=== PATIENT | female | born 1980 | race Caucasian/White ===

== ENCOUNTER 2016-08-30 17:29 | Emergency (ER) | payer OTHER ==
[2016-08-30 18:17] LABS: BASOPHIL 1.2 % (0-2); EOSINOPHIL 0.5 % (0-5); HCT 44.2 % (37.0-47.0); HGB 15.4 g/dl (12.5-16.0); MCH 35.1 pg (25.0-31.0); MCHC 34.8 g/dL (32.0-36.0); MCV 100.7 fL (78.0-100.0); MONOCYTE 6.5 % (0-12); MPV 9.3 fL (6.0-9.5); NEUTROPHIL 71.8 % (41-80); PLT 243 K/uL (150-400); RBC 4.39 M/uL (4.20-5.40); RDW 12.9 % (11.5-14.0); WBC 8.3 K/uL (4.0-10.5)
[2016-08-30 18:33] LABS: BILIRUBIN NEGATIVE (NEGATIVE); BLOOD TRACE-LYSED Ery/uL (NEGATIVE); CLARITY CLEAR (CLEAR); COLOR STRAW (YELLOW); GLUCOSE (U) 3+ mg/dL (NORMAL); KETONE (U) 2+ (MODERATE) mg/dL (NEGATIVE); LEUKOCYTES NEGATIVE Leu/uL (NEGATIVE); NITRITE NEGATIVE (NEGATIVE); PROTEIN NEGATIVE (NEGATIVE); UROBILINOGEN 0.2 mg/dL (0.2-1.0); pH 5.5 (5.0-9.0)
[2016-08-30 18:41] LABS: AMPHETAMINES NEGATIVE (NEGATIVE); BARBITURATES NEGATIVE (NEGATIVE); BENZODIAZEPINES NEGATIVE (NEGATIVE); COCAINE NEGATIVE (NEGATIVE); MARIJUANA (THC) NEGATIVE (NEGATIVE); METHADONE NEGATIVE (NEGATIVE); TRICYCLIC ANTIDEPRESSANT NEGATIVE (NEGATIVE)
[2016-08-30 18:46] LABS: ALBUMIN 4.2 g/dL (3.5-5.0); BILIRUBIN - TOTAL 0.2 mg/dL (0.1-1.0); CREATININE 0.5 mg/dL (0.5-1.0); GLOBULIN (CALCULATION) 2.6 g/dL (2.2-4.2); POTASSIUM 4.2 mmol/L (3.5-5.1); TOTAL PROTEIN 6.8 g/dL (6.4-8.3)
[2016-08-30 18:52] LABS: URINARY RBC RARE; URINARY WBC RARE
[2016-08-30 18:53] LABS: BACTERIA TRACE; SQUAMOUS EPITHELIAL CELLS RARE
[2016-08-30 19:01] LABS: INR 0.95 (0.9-1.2); PROTHROMBIN TIME 12.3 SECONDS (11.7-14.0); PTT 35.1 SECONDS (23.2-31.4)
== END 2016-08-30 19:31 | disposition other institution (70) ==
LOC: FER 17:29
PROVIDERS: Emergency Medicine
DX: I63.9 Cerebral infarction, unspecified (principal); R29.810 Facial weakness; R47.9 Unspecified speech disturbances; E10.40 Type 1 diabetes mellitus with diabetic neuropathy, unspecified; F41.9 Anxiety disorder, unspecified; F17.210 Nicotine dependence, cigarettes, uncomplicated; Z72.89 Other problems related to lifestyle; Z88.0 Allergy status to penicillin; Z88.1 Allergy status to other antibiotic agents; Z96.41 Presence of insulin pump (external) (internal); Z79.899 Other long term (current) drug therapy
CPT/HCPCS: 36415; 70450; 71010; 80053; 80305; 81001; 82550; 85025; 85610; 85730; 93005; G0480

== ENCOUNTER 2020-12-31 12:58 | Emergency (ER) | payer OTHER ==
[~2020-12-31 12:58] MED LIST: ASPIRIN EC81 MG PO; HUMALOG SC; KLONOPIN0.5 MG PO; LANTUS **100 UNITS/ SC; LIPITOR40 MG PO; NEURONTIN300 MG PO; PHENERGAN25 M1 PO; PROZAC20 MG PO; TOPROL XL 50 MG50 MG PO; TRAMADOL HCL50 MG PO; TRAZODONE 50MG50 MG PO; ZESTRIL2.5 MG PO; ZOFRAN ODT4 MG SL
[2020-12-31 14:05] LABS: EOSINOPHIL 2.4 % (0-5); HCT 34.1 % (37.0-47.0); HGB 11.8 g/dl (12.5-16.0); LYMPHOCYTE 21.1 % (15-48); MCH 33.7 pg (25.0-31.0); MCHC 34.6 g/dL (32.0-36.0); MCV 97.4 fL (78.0-100.0); MONOCYTE 6.1 % (0-12); NEUTROPHIL 69.1 % (41-80); NRBC 0; PLT 251 K/uL (150-400); RDW 12.7 % (11.5-14.0); WBC 9.8 K/uL (4.0-10.5)
[2020-12-31 14:13] LABS: ALBUMIN 2.6 g/dL (3.4-5.0); BILIRUBIN - TOTAL 0.4 mg/dL (0.2-1.0); BUN/CREAT RATIO (CALC) 19.1 RATIO; CREATININE 0.89 mg/dL (0.51-0.95); POTASSIUM 4.1 mmol/L (3.5-5.1); TOTAL PROTEIN 5.6 g/dL (6.4-8.2)
[2020-12-31 14:33] LABS: BILIRUBIN NEGATIVE (NEGATIVE); BLOOD 2+ Ery/uL (NEGATIVE); CLARITY CLEAR (CLEAR); COLOR YELLOW (YELLOW); GLUCOSE (U) 3+ mg/dL (NORMAL); LEUKOCYTES NEGATIVE Leu/uL (NEGATIVE); NITRITE NEGATIVE (NEGATIVE); PROTEIN 3+ mg/dL (NEGATIVE); UROBILINOGEN 0.2 mg/dL (0.2-1.0)
[2020-12-31 14:37] LABS: AMPHETAMINES NEGATIVE (NEGATIVE); BARBITURATES NEGATIVE (NEGATIVE); ECSTASY (MDMA) NEGATIVE (NEGATIVE); MARIJUANA (THC) NEGATIVE (NEGATIVE); METHADONE NEGATIVE (NEGATIVE); OPIATES NEGATIVE (NEGATIVE)
[2020-12-31 14:38] LABS: OXYCODONE NEGATIVE (NEGATIVE)
[2020-12-31 14:48] LABS: BACTERIA TRACE
== END 2020-12-31 18:25 | disposition other institution (70) ==
LOC: FER 12:58
PROVIDERS: Nurse Practitioner Family
DX: I63.81 Other cerebral infarction due to occlusion or stenosis of small artery (principal); I10 Essential (primary) hypertension; E10.9 Type 1 diabetes mellitus without complications; Z88.0 Allergy status to penicillin; Z88.1 Allergy status to other antibiotic agents
CPT/HCPCS: 36415; 70450; 70551; 80053; 80305; 81001; 85025; J1100; J1200; J1885; J7030; Q9967

== ENCOUNTER 2021-04-17 10:56 | Emergency (ER) | payer OTHER ==
[2021-04-17 12:22] LABS: BASOPHIL 0.8 % (0-2); EOSINOPHIL 1.9 % (0-5); HCT 28.6 % (37.0-47.0); HGB 9.4 g/dl (12.5-16.0); LYMPHOCYTE 16.1 % (15-48); MCHC 32.9 g/dL (32.0-36.0); MCV 97.3 fL (78.0-100.0); MONOCYTE 5.8 % (0-12); MPV 9.7 fL (6.0-9.5); NEUTROPHIL 74.9 % (41-80); NRBC 0; PLT 291 K/uL (150-400); RBC 2.94 M/uL (4.20-5.40); RDW 12.4 % (11.5-14.0); WBC 8.6 K/uL (4.0-10.5)
[2021-04-17 12:40] LABS: INR 0.9 (0.9-1.2); PROTHROMBIN TIME 11.6 SECONDS (11.8-13.4)
[2021-04-17 12:50] LABS: BILIRUBIN - TOTAL 0.2 mg/dL (0.2-1.0); CREATININE 1.36 mg/dL (0.51-0.95); GLOBULIN (CALCULATION) 3.4 g/dL; POTASSIUM 4.2 mmol/L (3.5-5.1); TOTAL PROTEIN 5.4 g/dL (6.4-8.2)
[2021-04-17] MEDS ORDERED: FIORICET1 EACH PO (15:20)
== END 2021-04-17 15:39 | disposition home or self-care (01) ==
LOC: FER 10:56
PROVIDERS: Internal Medicine
DX: I63.9 Cerebral infarction, unspecified (principal); I50.9 Heart failure, unspecified; Z86.73 Personal history of transient ischemic attack (TIA), and cerebral infarction without residual deficits; Z88.0 Allergy status to penicillin; Z88.1 Allergy status to other antibiotic agents; Z20.822 Contact with and (suspected) exposure to COVID-19
CPT/HCPCS: 36415; 70450; 70551; 71045; 80053; 83874; 84484; 85025; 85610; J1100; J1885; J2405; J7030; U0002

== ENCOUNTER 2021-05-21 13:18 | Emergency (ER) | payer OTHER ==
[~2021-05-21 13:18] MED LIST changes: +FIORICET1 EACH PO
[2021-05-21 14:29] LABS: BASOPHIL 0.8 % (0-2); EOSINOPHIL 0.2 % (0-5); HCT 30.3 % (37.0-47.0); HGB 9.9 g/dl (12.5-16.0); LYMPHOCYTE 12.5 % (15-48); MCH 31.5 pg (25.0-31.0); MCHC 32.7 g/dL (32.0-36.0); MCV 96.5 fL (78.0-100.0); MONOCYTE 3.6 % (0-12); MPV 9.7 fL (6.0-9.5); NEUTROPHIL 82.5 % (41-80); NRBC 0; PLT 389 K/uL (150-400); RBC 3.14 M/uL (4.20-5.40); RDW 13.6 % (11.5-14.0); WBC 10.1 K/uL (4.0-10.5)
[2021-05-21 14:49] LABS: INR 0.84 (0.9-1.2); PTT 25.4 SECONDS (24.4-34.7)
[2021-05-21 15:00] LABS: ALBUMIN 2.1 g/dL (3.4-5.0); ALKALINE PHOSHATASE 107 U/L (46-116); ALT 26 U/L (14-59); AST 24 U/L (15-37); BILIRUBIN - TOTAL 0.2 mg/dL (0.2-1.0); BUN 24 mg/dL (7-18); BUN/CREAT RATIO (CALC) 24.5 RATIO; CHLORIDE 102 mmol/L (98-107); CO2 (BICARBONATE) 25 mmol/L (21-32); CREATININE 0.98 mg/dL (0.51-0.95); GLOBULIN (CALCULATION) 3.5 g/dL; GLUCOSE 276 mg/dL (74-106); LIPASE 107 U/L (73-393); POTASSIUM 4.9 mmol/L (3.5-5.1); TOTAL PROTEIN 5.6 g/dL (6.4-8.2)
== END 2021-05-21 16:36 | disposition home or self-care (01) ==
LOC: FER 13:18
PROVIDERS: Emergency Medicine
DX: E63.9 Nutritional deficiency, unspecified (principal); I25.10 Atherosclerotic heart disease of native coronary artery without angina pectoris; I12.9 Hypertensive chronic kidney disease with stage 1 through stage 4 chronic kidney disease, or unspecified chronic kidney disease; E11.22 Type 2 diabetes mellitus with diabetic chronic kidney disease; N18.9 Chronic kidney disease, unspecified; F17.200 Nicotine dependence, unspecified, uncomplicated; Z88.0 Allergy status to penicillin; Z88.1 Allergy status to other antibiotic agents
CPT/HCPCS: 36415; 71046; 80053; 83690; 83880; 84443; 84484; 85025; 85610; 85730; 93005; G0480

== ENCOUNTER 2021-11-27 14:37 | Emergency (ER) | payer OTHER ==
[2021-11-27 15:54] LABS: BASOPHIL 0.7 % (0-2); EOSINOPHIL 3.7 % (0-5); HCT 29.6 % (37.0-47.0); HGB 9.5 g/dl (12.5-16.0); LYMPHOCYTE 12.5 % (15-48); MCH 31.7 pg (25.0-31.0); MCHC 32.1 g/dL (32.0-36.0); MCV 98.7 fL (78.0-100.0); MONOCYTE 4.7 % (0-12); MPV 9.8 fL (6.0-9.5); NEUTROPHIL 78.2 % (41-80); NRBC 0; PLT 314 K/uL (150-400); RDW 12.9 % (11.5-14.0); WBC 9.8 K/uL (4.0-10.5)
[2021-11-27 16:13] LABS: ALBUMIN 2.4 g/dL (3.4-5.0); BILIRUBIN - TOTAL 0.2 mg/dL (0.2-1.0); BUN/CREAT RATIO (CALC) 29.8 RATIO; CREATININE 1.31 mg/dL (0.51-0.95); GLOBULIN (CALCULATION) 3.7 g/dL; POTASSIUM 5.4 mmol/L (3.5-5.1); TOTAL PROTEIN 6.1 g/dL (6.4-8.2)
[2021-11-27 17:32] LABS: BILIRUBIN NEGATIVE (NEGATIVE); BLOOD 2+ Ery/uL (NEGATIVE); CLARITY CLEAR (CLEAR); COLOR YELLOW (YELLOW); GLUCOSE (U) 2+ mg/dL (NORMAL); LEUKOCYTES NEGATIVE Leu/uL (NEGATIVE); NITRITE NEGATIVE (NEGATIVE); PROTEIN 3+ mg/dL (NEGATIVE); UROBILINOGEN 0.2 mg/dL (0.2-1.0)
[2021-11-27 17:35] LABS: AMPHETAMINES NEGATIVE (NEGATIVE); BARBITURATES NEGATIVE (NEGATIVE); ECSTASY (MDMA) NEGATIVE (NEGATIVE); MARIJUANA (THC) NEGATIVE (NEGATIVE); METHADONE NEGATIVE (NEGATIVE); OPIATES NEGATIVE (NEGATIVE); OXYCODONE NEGATIVE (NEGATIVE)
[2021-11-27 18:09] LABS: BACTERIA TRACE
== END 2021-11-27 19:55 | disposition home or self-care (01) ==
LOC: FER 14:37
PROVIDERS: Nurse Practitioner Family
DX: R60.0 Localized edema (principal); R14.0 Abdominal distension (gaseous); R10.12 Left upper quadrant pain; E10.9 Type 1 diabetes mellitus without complications; I50.9 Heart failure, unspecified; Z28.310 Unvaccinated for COVID-19; Z88.0 Allergy status to penicillin; Z88.1 Allergy status to other antibiotic agents
CPT/HCPCS: 36415; 70450; 71045; 80053; 80305; 81001; 83880; 84484; 85025; 93005; J1940; J7030

== ENCOUNTER → 2022-01-01 | Day surgery (SDC) | payer OTHER ==
[~2022-01-01] VITALS: Ht 152.4 cm; Wt 54.4 kg
[~2022-01-01] MED LIST changes: +BRILINTA90 MG PO; +CARVEDILOL 25MG25 MG PO; +COZAAR50 MG PO; +DESVENLAFAXINE100 M3 PO; +PROCARDIA XL60 MG PO; +SYNTHROID25 MCG PO; +TRESIBA FL100 UNIT/1 SC; +ZETIA10 MG PO
[2022-01-01 10:39] LABS: HCG (URINE) SCREEN NEGATIVE (NEGATIVE)
== END | disposition home or self-care (01) ==
LOC: FAS 10:22
PROVIDERS: Anesthesiology
DX: D64.9 Anemia, unspecified (principal); D12.8 Benign neoplasm of rectum; F10.21 Alcohol dependence, in remission; E10.9 Type 1 diabetes mellitus without complications; R60.1 Generalized edema; I31.3 Pericardial effusion (noninflammatory); J90 Pleural effusion, not elsewhere classified; R93.5 Abnormal findings on diagnostic imaging of other abdominal regions, including retroperitoneum; G89.29 Other chronic pain; R10.12 Left upper quadrant pain; I10 Essential (primary) hypertension; F17.290 Nicotine dependence, other tobacco product, uncomplicated; Z88.0 Allergy status to penicillin; Z88.8 Allergy status to other drugs, medicaments and biological substances; Z79.01 Long term (current) use of anticoagulants; Z79.82 Long term (current) use of aspirin; Z86.73 Personal history of transient ischemic attack (TIA), and cerebral infarction without residual deficits
CPT/HCPCS: 84703; J7120